=== PATIENT | male | born 1975 | race Caucasian/White ===

== ENCOUNTER 2025-03-24 11:18 | Emergency (ER) | payer MEDICAID ==
[~2025-03-24] VITALS: Ht 175.3 cm; Wt 77.0 kg
[2025-03-24 11:22] VITALS: O2SAT 98
[2025-03-24] MEDS: LIDOCAINE HCL 1% 20ML VIAL INFIL ONE (11:43)
[2025-03-24] MEDS: TETANUS, DIPHTHERIA, PERTUSSIS VAC/PF 0.5ML (>10YR OLD) IM ONE (11:44)
[2025-03-24] MEDS: ACETAMINOPHEN 500MG TABLET PO ONE (11:44)
[2025-03-24] MEDS: BACITRACIN ZINC OINT UDPKT TOP ONE (12:33)
[2025-03-24] MEDS ORDERED: CEPH500C2 MT (13:41)
[2025-03-24] MEDS ORDERED: SULF1TAB48 MT (13:41)
[2025-03-24] MEDS ORDERED: BO1 TP (13:41)
[2025-03-24 13:58] VITALS: BP 139/92; PULSE 88; RESP 18; TEMP 36.7; O2SAT 98
[2025-03-24] MEDS ORDERED: KETOROLAC 30MG/ML VIAL IM ONE (14:00)
== END 2025-03-24 13:59 | disposition home or self-care (01) ==
LOC: ER 11:18
DX: S61.412A Laceration without foreign body of left hand, initial encounter (principal); W27.0XXA Contact with workbench tool, initial encounter; Y93.89 Activity, other specified; Y92.89 Other specified places as the place of occurrence of the external cause; Y99.8 Other external cause status
CPT/HCPCS: 73130; 90715; 12002; 90471; 99283; J2003; Z7610 ×2; A6449